=== PATIENT | female | born 1960 | race Caucasian/White ===

== ENCOUNTER 2019-11-22 17:33 | Inpatient (IN) | payer OTHER ==
[~2019-11-22] VITALS: Ht 162.6 cm; Wt 49.9 kg
[2019-11-22 17:41] VITALS: BP 124/78
[2019-11-22] MEDS ORDERED: NACL 0.9% 1,000 ML IV ONE (17:55)
[2019-11-22 18:30] LABS: BASOPHILS % (AUTO) 0.6 % (0.0-2.0); EOSINOPHILS # (AUTO) 0.1 K/uL (0-0.4); EOSINOPHILS % (AUTO) 3.1 % (0.0-4.0); HEMATOCRIT 33.7 % (36-48); HEMOGLOBIN 11.4 g/dL (12.0-16.0); LYMPHOCYTES # (AUTO) 1.2 K/uL (2.5-16.5); MEAN CORPUSCULAR HEMOGLOBIN 32 pg (27-31); MEAN CORPUSCULAR HGB CONC 34 g/dL (33-37); MEAN CORPUSCULAR VOLUME 94.2 fL (80-94); MONOCYTES # (AUTO) 0.4 K/uL (0.8-1.0); MONOCYTES % (AUTO) 8.9 % (1.7-9.3); NEUTROPHILS # (AUTO) 2.4 K/uL (1.8-7.7); NEUTROPHILS % (AUTO) 58.4 % (42.2-75.2); PLATELET COUNT (AUTO) 234 K/uL (140-450); RED BLOOD CELL COUNT(AUTO) 3.58 MIL/uL (4.20-5.40); RED CELL DISTRIBUTION WIDTH 14.8 % (11.6-13.7); WHITE BLOOD COUNT (AUTO) 4.1 K/uL (4.8-10.8)
[2019-11-22 18:34] LABS: BILIRUBIN,URINE NEGATIVE (NEGATIVE); BLOOD, URINE NEGATIVE (NEGATIVE); COLOR,URINE YELLOW (YELLOW); LEUKOCYTE ESTERASE ,URINE 1+ (NEGATIVE); NITRITE, URINE NEGATIVE (NEGATIVE); PH,URINE 5.5 (5.0-9.0); UGLUCOSE NEGATIVE (NEGATIVE)
[2019-11-22 18:37] LABS: APPEARANCE,URINE HAZY (CLEAR)
[2019-11-22 18:48] LABS: ACETAMINOPHEN < 0.5 ug/ml (10-30); ALBUMIN 3.7 g/dL (3.4-5.0); ASPARTATE AMINOTRANSFERASE 24 U/L (15-37); CARBON DIOXIDE 26.7 mmol/L (21-32); CHLORIDE 104 mmol/L (98-107); CREATININE 0.7 mg/dL (0.6-1.3); GFR ARICAN-AMERICAN 111 mL/min (>90); GLUCOSE 106 mg/dL (74-106); POTASSIUM 3.7 mmol/L (3.5-5.1); SALICYLATE < 2.8 mg/dL (2.8-20.0); SODIUM SERUM 141 mmol/L (136-145); TOTAL BILIRUBIN 0.5 mg/dL (0.0-1.0); UREA NITROGEN, BLOOD 14 mg/dL (7-18)
[2019-11-22 18:50] LABS: BARBITURATE, URINE NEGATIVE ng/ml (NEG <=200); BENZODIAZEPINE, URINE POSITIVE ng/mL (NEG <=200); CANNABINOID, URINE NEGATIVE ng/mL (NEG <=50); COCAINE, URINE NEGATIVE ng/mL (NEG <=300); OPIATE, URINE NEGATIVE ng/mL (NEG <=2000); PHENCYCLIDINE SCREEN,URINE NEGATIVE ng/mL (NEG <=25)
[2019-11-22 18:51] LABS: RBC,URINE NONE SEEN /HPF (0-5)
[2019-11-22 19:00] LABS: PHOSPHORUS 2.8 mg/dL (2.5-4.9)
[2019-11-22] MEDS ORDERED: GABA100C PO (19:19)
[2019-11-22] MEDS ORDERED: cefTRIAXone 1,000 MG VIAL ONE (19:20)
[2019-11-23] VITALS: BP 102/66
[2019-11-23 04:00] VITALS: BP 116/66
[2019-11-23 08:00] VITALS: BP 149/93
[2019-11-23 12:00] VITALS: BP 120/81
[2019-11-23] MEDS: LORazepam 2 MG/ML VIAL IVP PRN ×2 (12:58→19:51)
[2019-11-23 16:00] VITALS: BP 112/64
[2019-11-23 20:00] VITALS: BP 123/65
[2019-11-24] VITALS: BP 119/66
[2019-11-24 03:52] VITALS: BP 121/69
[2019-11-24 07:24] LABS: ANION GAP 9.8 (8-16); BASOPHILS % (AUTO) 0.3 % (0.0-2.0); CARBON DIOXIDE 28.9 mmol/L (21-32); CREATININE 0.6 mg/dL (0.6-1.3); EOSINOPHILS # (AUTO) 0.2 K/uL (0-0.4); EOSINOPHILS % (AUTO) 4.8 % (0.0-4.0); HEMATOCRIT 34.7 % (36-48); HEMOGLOBIN 11.5 g/dL (12.0-16.0); LYMPHOCYTES % (AUTO) 42.7 % (20.5-51.1); MEAN CORPUSCULAR HEMOGLOBIN 32 pg (27-31); MEAN CORPUSCULAR HGB CONC 33 g/dL (33-37); MEAN CORPUSCULAR VOLUME 95.1 fL (80-94); MONOCYTES # (AUTO) 0.5 K/uL (0.8-1.0); NEUTROPHILS % (AUTO) 42.2 % (42.2-75.2); PLATELET COUNT (AUTO) 198 K/uL (140-450); POTASSIUM 3.7 mmol/L (3.5-5.1); RED BLOOD CELL COUNT(AUTO) 3.65 MIL/uL (4.20-5.40); RED CELL DISTRIBUTION WIDTH 14.5 % (11.6-13.7); TOTAL BILIRUBIN 0.6 mg/dL (0.0-1.0); WHITE BLOOD COUNT (AUTO) 4.6 K/uL (4.8-10.8)
[2019-11-24 08:00] VITALS: BP 126/65
[2019-11-24] MEDS: MULTIVITAMIN 1 TAB PO SCH (09:54)
[2019-11-24] MEDS: SERTRALINE 50 MG TAB PO SCH (09:54)
[2019-11-24] MEDS: FOLIC ACID 1 MG TAB PO SCH (09:55)
[2019-11-24] MEDS: THIAMINE 100 MG TAB PO SCH (09:56)
[2019-11-24] MEDS: LORazepam 2 MG/ML VIAL IVP PRN ×2 (10:00→15:34)
[2019-11-24 12:00] VITALS: BP 142/86
[2019-11-24 16:00] VITALS: BP 123/79
[2019-11-24 20:00] VITALS: BP 140/81
[2019-11-24] MEDS ORDERED: TEMAZEPAM 15 MG CAP PO PRN (21:40)
[2019-11-25] VITALS: BP 122/63
[2019-11-25 04:00] VITALS: BP 128/73
[2019-11-25 08:00] VITALS: BP 123/69
[2019-11-25] MEDS: FOLIC ACID 1 MG TAB PO SCH (09:19)
[2019-11-25] MEDS: MULTIVITAMIN 1 TAB PO SCH (09:19)
[2019-11-25] MEDS: THIAMINE 100 MG TAB PO SCH (09:20)
[2019-11-25] MEDS: SERTRALINE 50 MG TAB PO SCH (09:20)
[2019-11-25 12:00] VITALS: BP 140/86
== END 2019-11-25 15:10 | disposition home or self-care (01) | DRG 817 ==
LOC: MED 17:33 → MTU 19:20
PROVIDERS: ADMIT Internal Medicine; ATTEND Internal Medicine
DX: T42.6X2A Poisoning by other antiepileptic and sedative-hypnotic drugs, intentional self-harm, initial encounter (principal); G62.9 Polyneuropathy, unspecified; F10.20 Alcohol dependence, uncomplicated; F32.9 Major depressive disorder, single episode, unspecified; Z87.891 Personal history of nicotine dependence; F19.10 Other psychoactive substance abuse, uncomplicated; N39.0 Urinary tract infection, site not specified; Y92.89 Other specified places as the place of occurrence of the external cause
CPT/HCPCS: 36415; 80053; 80305; 81001; 83735; 84100; 85025; 87081; 87086; 93005; 96361; 96365; 99285; G0480; G0482; J0696; J2060

== ENCOUNTER 2019-12-07 09:41 | Emergency (ER) | payer OTHER ==
[~2019-12-07] VITALS: Ht 160 cm; Wt 48.1 kg
[2019-12-07 09:45] VITALS: BP 127/80
--- NOTE | 2019-12-07 09:59 | NUR ---
PT AMB TO BED 12. HANDED ON URINE CUP.
--- NOTE | 2019-12-07 10:10 | NUR ---
C/O ALCOHOL WITHDRAWAL. LAST DRINKING YESTERDAY APPROX HALF TO ONE PINT OF VODKA. PATIENT STATED "I NEED HELP & WANT TO STOP DRINKING". DENIES SI AT THIS TIME. STATES SHE HAS CHILLS AND FEELS VERY COLD. DENIES N/V/D, CP OR SOB. LONGEST TIME WITHOUT ALCOHOL WAS 3 MONTHS. PT ALERT AND AWAKE, VS STABLE. AMBULATORY WITH STEADY GAIT MED HX: SI & DISCHARGE 11/25, DEPRESSION, DRUG USE
[2019-12-07 10:58] VITALS: BP 122/72
--- NOTE | 2019-12-07 10:58 | NUR ---
Patient discharged with v/s stable. Written and verbal after care instructions given and explained. Patient alert, oriented and verbalized understanding of instructions. Ambulatory with steady gait. All questions addressed prior to discharge. ID band removed. Patient advised to follow up with PMD. Rx of librium and zofran given. Patient educated on indication of medication including possible reaction and side effects. Opportunity to ask questions provided and answered. pt given homeless meal and signed waiver and was given list of shelters pt given substance and alcohol abuse resource list.
== END 2019-12-07 10:58 | disposition home or self-care (01) ==
LOC: MED 09:41
DX: F10.239 Alcohol dependence with withdrawal, unspecified (principal); F15.10 Other stimulant abuse, uncomplicated; F17.210 Nicotine dependence, cigarettes, uncomplicated; Z98.890 Other specified postprocedural states
CPT/HCPCS: 99283

== ENCOUNTER 2020-09-16 13:46 | Emergency (ER) | payer OTHER ==
[~2020-09-16] VITALS: Ht 170.2 cm; Wt 53.5 kg
[2020-09-16 14:02] VITALS: BP 116/73
[2020-09-16] MEDS ORDERED: NACL 0.9% 1,000 ML IV ONE (14:20)
[2020-09-16 14:31] LABS: BASOPHILS % (AUTO) 0.6 % (0.0-2.0); EOSINOPHILS # (AUTO) 0.2 K/uL (0-0.4); EOSINOPHILS % (AUTO) 2.8 % (0.0-4.0); HEMATOCRIT 40.7 % (36-48); HEMOGLOBIN 13.7 g/dL (12.0-16.0); LYMPHOCYTES # (AUTO) 2.6 K/uL (2.5-16.5); LYMPHOCYTES % (AUTO) 44.6 % (20.5-51.1); MEAN CORPUSCULAR HEMOGLOBIN 32 pg (27-31); MEAN CORPUSCULAR HGB CONC 34 g/dL (33-37); MEAN CORPUSCULAR VOLUME 96.2 fL (80-94); MONOCYTES # (AUTO) 0.3 K/uL (0.8-1.0); MONOCYTES % (AUTO) 4.8 % (1.7-9.3); NEUTROPHILS # (AUTO) 2.7 K/uL (1.8-7.7); NEUTROPHILS % (AUTO) 47.2 % (42.2-75.2); PLATELET COUNT (AUTO) 327 K/uL (140-450); RED BLOOD CELL COUNT(AUTO) 4.23 MIL/uL (4.20-5.40); RED CELL DISTRIBUTION WIDTH 14.3 % (11.6-13.7); WHITE BLOOD COUNT (AUTO) 5.8 K/uL (4.8-10.8)
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
--- NOTE | 2020-09-16 14:44 | NUR ---
PATIENT PULLED OUT SECOND IV THAT WAS PLACED, ERMD NOTIFIED, ADVISED TO NOT REINSERT NEW IV
[2020-09-16 14:53] LABS: ALBUMIN 3.8 g/dL (3.4-5.0); ANION GAP 11.5 (8-16); ASPARTATE AMINOTRANSFERASE 25 U/L (15-37); CARBON DIOXIDE 30.6 mmol/L (21-32); CHLORIDE 107 mmol/L (98-107); CREATININE 0.6 mg/dL (0.6-1.3); GFR ARICAN-AMERICAN 132 mL/min (>90); GLUCOSE 95 mg/dL (74-106); POTASSIUM 4.1 mmol/L (3.5-5.1); SODIUM SERUM 145 mmol/L (136-145); TOTAL BILIRUBIN 0.1 mg/dL (0.0-1.0); UREA NITROGEN, BLOOD 12 mg/dL (7-18)
[2020-09-16 14:55] LABS: ACETAMINOPHEN < 0.5 ug/ml (10-30); SALICYLATE < 2.8 mg/dL (2.8-20.0)
--- NOTE | 2020-09-16 15:28 | NUR ---
PATIENT IS RESTING IN BED, VSS, RESP EVEN AND UNLABORED
[2020-09-16 16:56] LABS: BARBITURATE, URINE NEGATIVE ng/ml (NEG <=200); BENZODIAZEPINE, URINE NEGATIVE ng/mL (NEG <=200); CANNABINOID, URINE NEGATIVE ng/mL (NEG <=50); COCAINE, URINE NEGATIVE ng/mL (NEG <=300); OPIATE, URINE NEGATIVE ng/mL (NEG <=2000); PHENCYCLIDINE SCREEN,URINE NEGATIVE ng/mL (NEG <=25)
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
--- NOTE | 2020-09-16 19:14 | NUR ---
REPORT RECEIVED FROM NERISSA DELANEY FOR CONTINUITY OF CARE
--- NOTE | 2020-09-16 19:14 | NUR ---
OFFICER PANCHO FROM [facility]. STATED PT IS REFUSING TO TALK WITH PD.
--- NOTE | 2020-09-16 21:12 | NUR ---
Dr. Mckeon examining patient.
[2020-09-16 22:07] VITALS: BP 133/101
--- NOTE | 2020-09-16 22:07 | NUR ---
Patient discharged with v/s stable. Written and verbal after care instructions given and explained. Patient verbalized understanding. Ambulatory with steady gait. All questions addressed prior to discharge. Advised to follow up with PMD.
--- NOTE | 2020-09-16 22:10 | NUR ---
[employer] [facility] CALLED.
--- NOTE | 2020-09-16 22:25 | NUR ---
[employer] HERE TO PICKUP PT.
== END 2020-09-16 22:07 | disposition home or self-care (01) ==
LOC: MED 13:46
DX: S09.8XXA Other specified injuries of head, initial encounter (principal); F10.129 Alcohol abuse with intoxication, unspecified; W18.39XA Other fall on same level, initial encounter; Y93.89 Activity, other specified; Y92.89 Other specified places as the place of occurrence of the external cause; Y99.8 Other external cause status
CPT/HCPCS: 36415; 70450; 80053; 80305; 85025; 93005; 99285; G0480; G0482; J7030